=== PATIENT | female | born 1995 | race Caucasian/White ===

== ENCOUNTER → 2024-12-09 | Outpatient (CLI) | payer BC, SELFPAY ==
--- NOTE | 2024-12-09 09:45 | XR_ITS ---
Examination: Abdomen sonogram, complete Date and time of exam: December 09, 2024 0955 hours INDICATIONS: Right upper abdominal pain beginning 2 years ago. Technique: Multiple real-time grayscale transabdominal sonographic images of the abdomen have been obtained. Findings: Normal gallbladder Normal common bile duct 0.3 cm Pancreatic head 2.9 cm Aorta not enlarged Liver 13.1 cm fatty infiltration smooth contour no focal liver lesions Normal hepatopedal portal venous flow Patent IVC Right kidney 10.9 x 5.4 x 5.0 cm renal cortex 1.8 cm 6 mm midpole calculus Left kidney 11.3 x 4.8 x 4.3 cm cortex 2.1 cm Mild bilateral renal parenchymal scar formation Spleen 10.2 cm IMPRESSION: Normal gallbladder Fatty liver 6 mm nonobstructing right renal calculus
== END | disposition home or self-care (01) ==
LOC: CDIM 09:27
PROVIDERS: PCP Family Medicine; Referring Provider Registered Nurse; Visit Provider Registered Nurse
DX: K76.0 Fatty (change of) liver, not elsewhere classified (principal); N20.0 Calculus of kidney
CPT/HCPCS: 76700

== ENCOUNTER 2025-09-20 13:43 | Emergency (ER) | payer BC, SELFPAY ==
[2025-09-20 14:03] VITALS: BP 112/70; PULSE 72; RESP 16; TEMP 36.7; O2SAT 98; BMI 29.2
--- NOTE | 2025-09-20 14:18 | XR_ITS ---
Examination: CT abdomen and pelvis without contrast. Coronal 3-D reconstructions. Sagittal 2-D reconstructions. Date and time of exam: 09/20/2025, 4:16 p.m. INDICATION: Right flank pain. COMPARISON: CT abdomen pelvis 04/09/2018. CTDI: vol (mGy): 8.67 DLP: (mGycm): 494 Technique: Axial images of the abdomen have been obtained, 3 mm slice thickness Intravenous contrast material has not been administered. Low dose protocols were performed. One or more of the following dose reduction techniques were used; automated exposure control, adjustment of the mA and/or KV according to patient size, use of iterative reconstruction technique. FINDINGS: Lower chest: No cardiomegaly or pericardial effusion. No airspace consolidation or pleural effusion. Liver: No significant hepatic enlargement. No solid liver mass. Biliary system: No calcified gallstones or findings concerning for acute cholecystitis or biliary ductal obstruction. Spleen: Within normal limits of size. No solid mass. Pancreas: No apparent infiltrative mass. No main pancreatic duct dilatation. No acute inflammatory changes. Adrenal glands: No significant findings. Kidneys and ureters: Slight right-sided perinephric fat stranding is present, suspicious for pyelonephritis or potentially recently passed calculus. However, there is no evidence for hydronephrosis, hydroureter or calculi on either side. Bladder: No calculi or focal mass. Pelvic organs: No concerning focal lesion or acute abnormality. Lymph nodes/retroperitoneum: No pathologically enlarged lymph nodes or other masses. No hematoma or other abnormal collections. Vessels: Normal caliber abdominal aorta. 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 Bowel/Peritoneal cavity: Limited assessment of bowel due to segments of underdistention and lack of oral contrast. No contour deforming mass. No obstructive or acute inflammatory changes. Remote appendectomy reidentified. No ascites or free air. No concerning peritoneal thickening. Abdominal/Pelvic wall: Minimal fat-containing umbilical hernia noted. Musculoskeletal: No recent fractures or aggressive bone lesions detected. IMPRESSION: Slight right-sided perinephric fat stranding is present, suspicious for pyelonephritis or potentially recently passed calculus. However, there is no evidence for hydronephrosis, hydroureter or urinary tract calculi on either side. Chronic ancillary findings as above.
[2025-09-20 15:02] LABS: Basophils # (Auto) 0.0 Thou/mm3 (0.0-0.2); Basophils % (Auto) 0 % (0-2.5); Eosinophils # (Auto) 0.1 Thou/mm3 (0.0-0.5); Eosinophils % (Auto) 1 % (0-10); Hematocrit 40.3 % (36.0-46.0); Hemoglobin 13.5 g/dL (12.0-16.0); Immature Granulocytes Auto 0.03 Thou/mm3 (0.00-0.00); Lymphocytes # (Auto) 2.6 Thou/mm3 (1.0-4.8); Lymphocytes % (Auto) 24 % (10-50); Mean Corpuscular HGB Conc 33.5 g/dl (31.0-37.0); Mean Corpuscular Hemoglobin 28.7 pg (25.0-35.0); Mean Corpuscular Volume 86 fL (80-100); Monocytes # (Auto) 1.0 Thou/mm3 (0.0-0.8); Monocytes % (Auto) 10 % (0-12); Neutrophils # (Auto) 7.1 Thou/mm3 (1.8-7.7); Neutrophils % (Auto) 65 % (37-80); Nucleated Red Blood Cell # 0.00 Thou/mm3 (0.00-0.00); Nucleated Red Blood Cell % 0 /100 WBC (0); Platelet Count 266 Thou/mm3 (140-440); RDW Standard Deviation 38.7 fL (36.4-46.3); Red Blood Count 4.71 Miln/mm3 (4.00-5.20); White Blood Count 10.8 Thou/mm3 (3.6-11.0)
[2025-09-20 15:21] LABS: Alanine Aminotransferase 23 U/L (10-49); Albumin, Serum 4.7 gm/dL (3.5-5.0); Albumin/Globulin Ratio 2.1 (1.2-2.2); Alkaline Phosphatase 82 U/L (46-116); Anion Gap 9 (7-16); Aspartate Amino Transferase 26 U/L (0-34); BUN/Creatinine Ratio 9 Ratio (12-20); Bilirubin,Total 0.4 mg/dL (0.3-1.2); Blood Urea Nitrogen 15 mg/dL (9-23); Calcium 9.7 mg/dL (8.3-10.6); Calcium (Corrected) 9.7 mg/dL (8.5-10.1); Carbon Dioxide 26.0 mMol/L (20.0-31.0); Chloride 106 mMol/L (98-107); Creatinine (Component) 1.6 mg/dL (0.6-1.3); Estimated Creatinine Clearance 52.6 mL/min (>60); Globulin 2.2 gm/dL (2.3-3.5); Glucose 93 mg/dL (74-106); Lipase 26 U/L (12-53); Osmolality,Calculated 282 (275-295); Potassium 4.2 mMol/L (3.4-5.1); Sodium 141 mMol/L (136-145); Total Protein 6.9 gm/dL (5.7-8.2); eGFR 45 See Note
[2025-09-20] MEDS: KETOROLAC INJ 60 MG/2 ML VIAL 30 MG IM (15:23)
[2025-09-20] MEDS: ONDANSETRON ODT 4 MG TABRAP PO (15:24)
[2025-09-20 15:28] LABS: Collection Type, Urine Clean Catch
[2025-09-20 15:46] LABS: Bacteria,Urine Rare; Bilirubin,Urine Negative (Negative); Blood,Urine Negative (Negative); Clarity,Urine Clear (Clear/Hazy); Color,Urine Colorless (Lt Yel-Yel); Glucose, Urine Negative (Negative); Ketones,Urine Negative (Negative); Leukocyte Esterase,Urine Positive (Negative); Nitrite,Urine Negative (Negative); PH,Urine 6.5 (5.0-7.0); Protein,Urine Negative (Neg - Trace); RBC,Urine 1 /hpf (0-3); Specific Gravity,Urine 1.008 (1.001-1.035); Squamous Epithelial Cell,Urine 3 /hpf (0-5); Urobilinogen,Urine Negative mg/dL (0.0-1.0); WBC,Urine 3 /hpf (0-5)
[2025-09-20 15:49] LABS: HCG Qualitative,Urine Negative
--- NOTE | 2025-09-20 17:49 | PD.EDFMALE ---
ED Female Urogenital RME/HPI General Chief complaint: Urogenital-Female Stated complaint: R) KIDNEY STONE Time Seen by Provider: 09/20/25 13:47 Arrival date/time: 09/20/25 13:43 This is a case of 30-year-old female with history of kidney stone and pyelonephritis came in in the emergency room due to right flank pain radiating to the right lower abdomen associated with nausea vomiting for 2 days patient was diagnosed to have kidney stone last November and unable to see a urologist patient is fine until 2 days prior to arrival in the emergency room patient noted to have pain on the right flank thus decided to start consult here in the emergency room Limitations: no limitations Related Data Previous Rx's ?Medication ?Instructions ?Recorded docusate sodium 100 mg capsule 100 mg PO BID #50 caps 09/11/19 (Colace) hydrocodone 5 mg-acetaminophen 325 1 tab PO Q6H PRN pain #20 tabs 09/11/19 mg tablet ([place]) ibuprofen 600 mg tablet 600 mg PO Q8HR PRN pain (scale 09/11/19 score 4-6) #20 tabs cefuroxime axetil 500 mg tablet 500 mg PO Q12H 10 days #20 tabs 09/20/25 hydrocodone 5 mg-acetaminophen 325 1 tab PO Q6H PRN pain #12 tabs 09/20/25 mg tablet ondansetron 4 mg disintegrating 4 mg PO Q8H #20 tabs 09/20/25 tablet Allergies Allergy/AdvReac Type Severity Reaction Status Date / Time No Known Allergies Allergy Verified 09/20/25 13:46 Review of Systems Review of Systems Systems Reviewed: All systems reviewed, normal except as documented Constitutional Constitutional: Reports system reviewed and no additional complaints, except as documented and Reports as per HPI Cardiovascular Cardiovascular: Reports system reviewed and no additional complaints, except as documented and Reports as per HPI Respiratory Respiratory: Reports system reviewed and no additional complaints, except as documented and Reports as per HPI Gastrointestinal Gastrointestinal: Reports system reviewed and no additional complaints, except as documented and Reports as per HPI Genitourinary Genitourinary: Reports system reviewed and no additional complaints, except as documented and Reports as per HPI Musculoskeletal Musculoskeletal: Reports system reviewed and no additional complaints, except as documented and Reports as per HPI Neurologic Neurologic: Reports system reviewed and no additional complaints, except as documented and Reports as per HPI Past Medical History Past Medical History NEUROLOGIC: Negative Neurological Disorders or Seizures CARDIAC: Negative Cardiac Disorders or Congestive Heart Failure RESPIRATORY: Negative Chronic Obstructive Pulmonary Disease (COPD) GASTROINTESTINAL: Negative Gastrointestinal Disorders GENITOURINARY: Negative Genitourinary Disorders or Renal Disease MUSCULOSKELETAL: Negative Musculoskeletal Disorders ENDOCRINE: Negative Endocrine Disorders, Diabetes Mellitus Type 1 or Diabetes Mellitus Type 2 HEMATOLOGIC: Negative Blood Disorders OTHER HISTORY: Negative Autoimmune Disease, Falls, Blood Transfusions, Blood Transfusion Reaction, Anesthesia Reactions, Measles, Mumps or Cancer Family History FAMILY HISTORY: Positive Family Surgery (Sister - Pilonidal cyst) and Family Anesthesia Reaction (Sister - slow to wake up after surgery); Negative Family Psychiatric Problems, Family Respiratory Disorders, Family Cardiac Disorders, Family Gastrointestinal Problems or Family Cancer Social History SMOKING STATUS: Never smoker ED Exam General Limitations: Present no limitations General appearance: Present alert, in no apparent distress and other (Patient is awake alert oriented not in distress nontoxic looking well-hydrated well-nourished) Head Head exam: Present atraumatic, normocephalic and normal inspection Eye Eye exam: Present normal appearance, PERRL and EOMI ENT ENT exam: Present normal exam, normal oropharynx and mucous membranes moist Neck Neck exam: Present normal inspection, full ROM and trachea midline; Absent tenderness, meningismus, lymphadenopathy or thyromegaly Chest Chest inspection: Present normal inspection and symmetric chest wall rise; Absent tenderness Respiratory Respiratory exam: Present normal lung sounds bilaterally; Absent respiratory distress, wheezes, stridor, accessory muscle use or prolonged expiratory phase Cardiovascular Cardiovascular exam: Present regular rate, normal rhythm and normal heart sounds; Absent bradycardia, tachycardia, irregular rhythm, systolic murmur or diastolic murmur Abdominal Exam Abdominal exam: Present soft, tenderness (Moderate tenderness on the right flank) and normal bowel sounds; Absent distention, guarding, rebound, rigidity, diminished bowel sounds, hyperactive bowel sounds, hypoactive bowel sounds, organomegaly, trauma, psoas sign, obturator sign, heel tap sign, Gonzalez's sign, Rovsing's sign or tenderness at McBurney's Point Extremities Exam Extremities exam: Present normal inspection and full ROM Back Exam Back exam: Present normal inspection and full ROM; Absent tenderness, CVA tenderness (R), CVA tenderness (L), muscle spasm, paraspinal tenderness, vertebral tenderness, sciatic notch tenderness (R), sciatic notch tenderness (L), straight leg raise (R) or straight leg raise (L) Neurological Exam Neurological exam: Present alert, oriented X3, CN II-XII intact, normal gait and reflexes normal; Absent motor sensory deficit Psychiatric Psychiatric exam: Present normal affect and normal mood Skin Skin exam: Present warm, dry, intact, normal color and other (Excellent skin turgor) Course Quality Measures none Orders Category Date Time Status CT abdomen pelvis wo con Stat Exams 09/20/25 14:18 Completed CBC Stat Lab 09/20/25 14:51 Completed Comprehensive Metabolic Panel Stat Lab 09/20/25 14:51 Completed HCG Qualitative,Urine Stat Lab 09/20/25 15:15 Completed Lipase Stat Lab 09/20/25 14:51 Completed Urinalysis Stat Lab 09/20/25 15:15 Completed Ketorolac Inj [Toradol Inj] Med 09/20/25 14:34 Discontinued 30 mg IM X1 ONE Morphine* Inj Med 09/20/25 14:34 Discontinued 4 mg IM X1 ONE Ondansetron Odt [Zofran Odt] Med 09/20/25 14:34 Discontinued 4 mg PO X1 ONE Sodium Chloride 0.9% 1000 ml [Ns] 1,000 ml Med 09/20/25 17:33 Active IV 999 mls/hr cefTRIAXone [Rocephin] 2 gm Med 09/20/25 17:33 Active SODIUM CHLORIDE 0.9% (Popper) [Ns 0.9% (P)] 50 ml IV X1 Vital Signs Vital signs: Vital Signs Temperature 98.1 F 09/20/25 14:03 Pulse Rate 72 09/20/25 14:03 Respiratory Rate 16 09/20/25 14:03 Blood Pressure 112/70 09/20/25 14:03 Pulse Oximetry (%) 98 09/20/25 14:03 Oxygen Delivery Method Room Air 09/20/25 14:03 Oxygen saturation is 98% in room air normal Urogenital - Female MDM Narrative MDM Narrative:: This is a case of 30-year-old female with history of kidney stone and pyelonephritis came in in the emergency room due to right flank pain radiating to the right lower abdomen associated with nausea vomiting for 2 days patient was diagnosed to have kidney stone last November and unable to see a urologist patient is fine until 2 days prior to arrival in the emergency room patient noted to have pain on the right flank thus decided to start consult here in the emergency room physical examination patient is awake alert oriented not in distress nontoxic looking well-hydrated well-nourished noted moderate tenderness on the right flank no guarding no rebound no rigidity no tenderness on the anterior abdomen negative psoas negative straight or negative Rovsing's negative McBurney's negative Gonzalez sign negative CVA tenderness patient has no signs and symptoms of sepsis dehydration or acute abdomen patient vital signs is stable BP stable not tachycardic not tachypneic afebrile and nonhypoxic the rest of the physical examination neurological exam is normal and unremarkable blood test shows no leukocytosis no anemia liver function is normal BUN is normal creatinine is slightly elevated at 1.6 eGFR ER is 45 possible due to dehydration urinalysis showed normal no blood no WBC in the urine CT scan showed possible pyelonephritis versus passing of the stone patient was given morphine Toradol Zofran which improved resolve the pain patient was given a bolus of normal saline and a 2 g of ceftriaxone for acute pyelonephritis patient was just discharged with cefuroxime for pyelonephritis Zofran for nausea vomiting and [place] for pain she was advised to see a optical instrument assembler for further evaluation and treatment of abnormal creatinine level and for acute pyelonephritis for any worsening symptoms or any emergent concern return precaution in the ER is advised Patient was discharged with comfortable condition walking with stable gait. Patient verbalized no further complains explained diagnosis and answered patient question. Patient is comfortable with the proposed management plan including the need to follow up with his/her primary care physician and any specialist if applicable Discussed patient for any urgent condition or worsening sx, He/She needed to go to emergency room immediately or call 911. Patient acknowledge the responsibility to follow up as instructed and to monitor her/his symptoms. For any persistence of the symptoms for more than 3-5 days return precaution advised. Discussed the result of the test and was given printed discharge instruction Patient data External records reviewed:: [facility] previous records Clinical information provided by:: patient Social determinants that could affect healthcare access:: none Patient has the following chronic illnesses:: None How is presenting disease/condition affected by chronic disease/condition?: no chronic disease Evaluation data The following diagnostics were reviewed and interpreted by me:: lab results and radiology exam(s) Lab and/or radiology exams considered but not ordered:: Reviewed Interpretation Summary: Reviewed Medications / Prescriptions Medications or Prescriptions considered but not ordered:: Given Medication administrations:: Medication Administration History Sodium Chloride (Ns) 1,000 mls @ 999 mls/hr IV .Q1H1M ONE Stop: 09/20/25 18:33 Ceftriaxone Sodium 2 gm/ (Sodium Chloride) 50 mls @ 100 mls/hr IV X1 ONE Stop: 09/20/25 18:02 Discontinued Medications Ketorolac Tromethamine (Ketorolac Inj 60 Mg/2 Ml Vial) 30 mg IM X1 ONE Stop: 09/20/25 14:35 Last Admin: 09/20/25 15:23 Dose: 30 mg Documented By: BARBRA Morphine Sulfate (Morphine Sulf Inj 4 Mg/Ml Vial) 4 mg IM X1 ONE Stop: 09/20/25 14:35 Last Admin: 09/20/25 15:24 Dose: Not Given Documented By: BARBRA Non-Admin Reason: Patient Refused Ondansetron HCl (Ondansetron Odt 4 Mg Tabrap) 4 mg PO X1 ONE; Protocol Stop: 09/20/25 14:35 Last Admin: 09/20/25 15:24 Dose: 4 mg Documented By: BARBRA Given Consultations Consultation(s) initiated? (list below): No Diagnosis Urogenital Female Differential Diagnosis: urinary tract infection, cystitis and other (Pyelonephritis) Most likely diagnosis given after review of the tests above:: Acute pyelonephritis Admission Indicated Admission indicated?: not indicated Explain why admission is indicated or not indicated:: Not indicated Admission Request Was there a request for admission?: No Admission Attestation Admission request attestation: Not indicated Disposition Plan Disposition Plan: Discharge Discharge Attestation Discharge Attestation: The patient and all family members were given an opportunity to ask questions and understood the discharge instructions. Discharge instructions specifically effects, indications for sooner follow up or return to the emergency department, and the expected course of current diagnosis. Patient condition: Stable Discharge Plan Plan Patient Disposition: HOME (Self Care) Patient condition on transfer: Stable Prescriptions/Referrals Prescriptions/Med Rec: New cefuroxime axetil 500 mg tablet 500 mg PO Q12H 10 Days Qty: 20 0RF hydrocodone-acetaminophen 5-325 mg tablet 1 tab PO Q6H MDD max 4 tabs per day PRN (Reason: pain) Qty: 12 0RF ondansetron 4 mg tablet,disintegrating 4 mg PO Q8H Qty: 20 0RF No Action docusate sodium [Colace] 100 mg capsule 100 mg PO BID Qty: 50 0RF hydrocodone-acetaminophen [[place]] 5-325 mg tablet 1 tab PO Q6H MDD 4 PRN (Reason: pain) Qty: 20 0RF ibuprofen 600 mg tablet 600 mg PO Q8HR PRN (Reason: pain (scale score 4-6)) Qty: 20 0RF Referrals: Brittany Sharma MD [Primary Care Provider, Family Practice] - In 1 week Problem List Clinical Impression: Abdominal pain, Acute pyelonephritis, Abnormal serum creatinine level Patient/Caregiver Discharge Instructions Education Materials: Abdominal Pain, ED Pyelonephritis, Female (Adult) Additional Instructions: Follow-up with your primary care physician in 2 days for reevaluation and to be referred to optical instrument assembler for further evaluation and treatment of pyelonephritis and abnormal creatinine level return to the emergency room or go to your primary care physician to have a repeat level of your kidney function worsening symptoms or any emergent concern call 911 or go to the nearest emergency room take your medication as directed finish the course of antibiotic increase water intake keep hydrated Pedialyte Gatorade for hydration Print Language: Russian Stand Alone Forms: Domenica Award Info., Patient Portal Info Letter PA/ACCOUNTS PAYABLE ANALYST Supervising Physician PA/TULIO Supervising Physician: dr peres
[2025-09-20] MEDS: SODIUM CHLORIDE 0.9% 1000 ML 1,000 ML 999 ML IV (18:19)
[2025-09-20] MEDS: cefTRIAXone 2 GM in SODIUM CHLORIDE 0.9% (Popper) 50 ML IV (19:31)
== END 2025-09-20 20:01 | disposition home or self-care (01) ==
PROVIDERS: Nurse Practitioner Family; Emergency Provider Emergency Medicine; PCP Family Medicine
DX: N10 Acute pyelonephritis (principal); R79.89 Other specified abnormal findings of blood chemistry
CPT/HCPCS: 36415; 74176; 80053; 81001; 81025; 83690; 85025; 96360; 96372; 99283; J0696; J1885; J7030; J7050; Q0162

== ENCOUNTER → 2025-09-29 | Outpatient (CLI) | payer BC, SELFPAY ==
[2025-09-29 12:59] LABS: Alanine Aminotransferase 17 U/L (10-49); Albumin, Serum 5.1 gm/dL (3.5-5.0); Albumin/Globulin Ratio 2.2 (1.2-2.2); Alkaline Phosphatase 78 U/L (46-116); Anion Gap 8 (7-16); Aspartate Amino Transferase 18 U/L (0-34); BUN/Creatinine Ratio 14 Ratio (12-20); Bilirubin,Total 0.4 mg/dL (0.3-1.2); Blood Urea Nitrogen 11 mg/dL (9-23); Calcium 9.7 mg/dL (8.3-10.6); Calcium (Corrected) 9.7 mg/dL (8.5-10.1); Carbon Dioxide 28.4 mMol/L (20.0-31.0); Chloride 106 mMol/L (98-107); Creatinine (Component) 0.8 mg/dL (0.6-1.3); Globulin 2.3 gm/dL (2.3-3.5); Glucose 88 mg/dL (74-106); Osmolality,Calculated 281 (275-295); Potassium 4.6 mMol/L (3.4-5.1); Sodium 142 mMol/L (136-145); Total Protein 7.4 gm/dL (5.7-8.2); Uric Acid 5.1 mg/dL (3.1-7.8); eGFR > 60 See Note
[2025-09-29 13:05] LABS: Collection Type, Urine Clean Catch
[2025-09-29 13:36] LABS: Bacteria,Urine 1+; Bilirubin,Urine Negative (Negative); Blood,Urine Negative (Negative); Clarity,Urine Clear (Clear/Hazy); Color,Urine Lt-Yellow (Lt Yel-Yel); Glucose, Urine Negative (Negative); Ketones,Urine Negative (Negative); Leukocyte Esterase,Urine Positive (Negative); Nitrite,Urine Negative (Negative); PH,Urine 6.5 (5.0-7.0); Protein,Urine Negative (Neg - Trace); RBC,Urine 2 /hpf (0-3); Specific Gravity,Urine 1.015 (1.001-1.035); Squamous Epithelial Cell,Urine 3 /hpf (0-5); Urobilinogen,Urine Negative mg/dL (0.0-1.0); WBC,Urine 4 /hpf (0-5)
[2025-09-29 13:42] LABS: Culture Indicated,Urine Yes
== END | disposition home or self-care (01) ==
LOC: COPL 11:38
PROVIDERS: PCP Family Medicine; Referring Provider Registered Nurse; Visit Provider Registered Nurse
DX: N10 Acute pyelonephritis (principal); R94.4 Abnormal results of kidney function studies
CPT/HCPCS: 36415; 80053; 81001; 84550; 87086